=== PATIENT | male | born 1955 | race Caucasian/White ===

== ENCOUNTER 2017-05-19 06:48 | Day surgery (SDC) | payer BC ==
[~2017-05-19] VITALS: Ht 182.9 cm; Wt 97.4 kg
--- NOTE | 2017-05-20 08:04 | OR ---
ADMIT: 05/19/2017 RM/LOC: [facility] MR#: [id number] [address] [id number] YOLA ADDISON [address] [place] [address] Operative/Delivery Room Report SEX: M AGE: 61 : 1955 SURGERY DATE: 05/19/2017 SURGEON: Diogo Moreno MD PREOPERATIVE DIAGNOSIS: Right neck mass, submandibular triangle. POSTOPERATIVE DIAGNOSES: 1. Adenopathy, submandibular triangle, right neck. 2. Adenopathy, deep jugular level 3, right neck. OPERATION: Right neck exploration with excisional biopsy of lymph nodes for histologic diagnosis and lymphoma study. ANESTHESIA: General oral endotracheal. BLOOD LOSS: 10 mL. COMPLICATIONS: None. DRAINS: [place]. DESCRIPTION OF PROCEDURE: With the patient in supine position under general oral endotracheal anesthesia, his head was turned slightly to the left. The right neck was prepped with ChloraPrep, allowed 3 minutes to dry. The patient was draped sterilely. An incision made following natural skin crease low in the neck through skin, subcutaneous tissue, and platysma muscle and skin flaps elevated anteriorly subplatysmally exposing the sternomastoid muscle and the right neck contents. The sternomastoid muscle was from the visceral compartment of the neck as well as the submandibular triangle. The inferior aspect of the submandibular gland was identified, dissection was continued towards the mandible within the capsule of the submandibular gland. The gland itself had a normal appearance of both inspection and palpation. A mass was present adjacent to the medial aspect of the mandible in the midportion of the body and it was separate from the submandibular gland. The mass proved to represent a lymph node which was excised with blunt dissection. Afferent and ADMIT: 05/19/2017 RM/LOC: [facility] MR#: [id number] [address] [address] YOLA ADDISON [address] [place] [address] Operative/Delivery Room Report SEX: M AGE: 61 : 1955 efferent vessels were treated by clamping and coagulation. The mass was sent fresh for lymphoma study. The vascular compartment of the neck was then examined and there were multiple lymph nodes in the level 3. Three lymph nodes were from the surrounding tissues along the deep jugular chain and sent in also fresh for lymphoma study, labeled contents of right neck, level 3. No other abnormalities identified on inspection and palpation. The wound was irrigated with saline. Wound was closed over a [place] drain with 3-0 chromic catgut to the deep tissues and platysmal layer and a running horizontal mattress suture to the skin. The drain was not sutured to the skin. A dressing was applied. He tolerated this very well. He emerged from general anesthesia in the operating room, was extubated in the operating room, and transferred to the recovery room in good condition. Diogo Moreno MD/ rigo JOB #: [id number] CC: Diogo Moreno, Attending Physician Mavis Hoffman, Family Physician
--- NOTE | 2017-05-25 07:03 | HP ---
ADMIT: 05/19/2017 RM/LOC: [facility] MR#: [id number] [address] [address] YOLA ADDISON Mary [address] [place], [place] [address] Pre-OP History and Physical SEX: M AGE: 61 : 1955 DATE OF SERVICE: HISTORY OF PRESENT ILLNESS: Mr. Addison is 61 years old. He is admitted for excision of a mass in the right submandibular triangle. He has had a palpable lump in the area that is progressively enlarging. It is intermittently sore, does not, however, fluctuate with meals and does not become swollen, red, or painful. The significance of the lump and treatment options have been discussed. Surgical excision has been recommended. This will be for both diagnostic and therapeutic purposes. We discussed the rationale and the risks with risks specific to this area of surgery including the marginal mandibular branch of the facial nerve, the lingual nerve, and possible hypoglossal. He is in good understanding of the rationale for the recommendations and the risks involved. He is in acceptance of these, and he is admitted at this time for general anesthesia. MEDICATIONS PRIOR: 1. Losartan. 2. [place]-3. ALLERGIES: CODEINE. PAST MEDICAL HISTORY: Appendectomy, knee surgery, and tonsillectomy. REVIEW OF SYSTEMS: Positive for high blood pressure. Does not have known lower respiratory, genitourinary, hematologic, or neurologic disorders. Does have past history of stomach ulcer. SOCIAL HISTORY: Drinks alcohol. He drinks caffeine in the form of soda, but does not use tobacco. FAMILY HISTORY: No known anesthetic complications and no coagulopathies. PHYSICAL EXAMINATION: VITAL SIGNS: A 61-year-old, 5 feet 11 inches, 215 pounds. HEENT: Pupils are equal. Conjunctivae are clear. Ear canals, TMs, and ADMIT: 05/19/2017 RM/LOC: [facility] MR#: [id number] [address] [facility] [address] [place], [place] [address] [place], [place] [id number] Pre-OP History and Physical SEX: M AGE: 61 : 1955 middle ears clear. Facial mobility intact and symmetrical. Nose, mouth, and pharynx clear. Good symmetry, structure, and function. Hypopharynx and larynx normal symmetrical structure and function. NECK: Ovoid mass, right neck within submandibular triangle nontender. There are no other cervical adenopathy or neck masses palpable. Thyroid is symmetrical without nodules. LUNGS: Clear. HEART: Rhythm regular. EXTREMITIES: Normal. IMPRESSION: Mass right neck, submandibular triangle. Recommend excisional biopsy. Diogo Moreno MD/ rigo JOB #: [id number] CC: Diogo Moreno, Attending Physician UNKNOWN, Family Physician
== END 2017-05-19 11:50 | disposition home or self-care (01) ==
LOC: SSS 06:48
PROC: 07B20ZX Excision of Left Neck Lymphatic, Open Approach, Diagnostic (ICD-10-PCS; principal; 2017-05-19)
DX: R59.9 Enlarged lymph nodes, unspecified (principal); I10 Essential (primary) hypertension; Z90.49 Acquired absence of other specified parts of digestive tract; Z98.890 Other specified postprocedural states; Z79.899 Other long term (current) drug therapy; Z88.0 Allergy status to penicillin; Z88.6 Allergy status to analgesic agent